=== PATIENT | female | born 1935 | race Caucasian/White ===

== ENCOUNTER 2023-03-05 14:41 | Outpatient (CLI) | payer MEDICARE | END 2023-03-05 14:42 | disposition home or self-care (01) | LOC: RAD 14:41 | PROVIDERS: ATTEND Anesthesiology Pain Medicine | DX: S32.040G Wedge compression fracture of fourth lumbar vertebra, subsequent encounter for fracture with delayed healing (principal); S32.049A Unspecified fracture of fourth lumbar vertebra, initial encounter for closed fracture | CPT/HCPCS: 72100 ==

== ENCOUNTER 2023-03-13 07:42 | Outpatient (CLI) | payer MEDICARE | END 2023-03-13 07:43 | disposition home or self-care (01) | LOC: SCSMRI 07:42 | PROVIDERS: ATTEND Nurse Practitioner Family | DX: S32.10XA Unspecified fracture of sacrum, initial encounter for closed fracture (principal); S32.040G Wedge compression fracture of fourth lumbar vertebra, subsequent encounter for fracture with delayed healing; S32.021A Stable burst fracture of second lumbar vertebra, initial encounter for closed fracture | CPT/HCPCS: 72148; 72195 ==

== ENCOUNTER 2023-06-04 08:28 | Outpatient (CLI) | payer MEDICARE | END 2023-06-04 08:29 | disposition home or self-care (01) | LOC: SCSMRI 08:28 | PROVIDERS: ATTEND Nurse Practitioner Family | DX: S32.059A Unspecified fracture of fifth lumbar vertebra, initial encounter for closed fracture (principal); S32.10XA Unspecified fracture of sacrum, initial encounter for closed fracture; M47.816 Spondylosis without myelopathy or radiculopathy, lumbar region | CPT/HCPCS: 72148; 72195 ==

== ENCOUNTER 2023-06-12 09:54 | Outpatient (CLI) | payer MEDICARE | END 2023-06-12 09:55 | disposition home or self-care (01) | LOC: BICCT 09:54 | PROVIDERS: ATTEND Anesthesiology Pain Medicine | DX: S32.051A Stable burst fracture of fifth lumbar vertebra, initial encounter for closed fracture (principal); M47.816 Spondylosis without myelopathy or radiculopathy, lumbar region; M47.817 Spondylosis without myelopathy or radiculopathy, lumbosacral region; Z98.890 Other specified postprocedural states | CPT/HCPCS: 72131 ==

== ENCOUNTER 2023-06-22 09:41 | Day surgery (SDC) | payer MEDICARE ==
[~2023-06-22 09:41] MED LIST: ROMOSOZUMAB-AQQG 210 MG/2.34 ML SYR SQ SCH
[2023-06-22 10:05] VITALS: BP 160/69; TEMP 98.4
== END 2023-06-22 11:30 | disposition home or self-care (01) ==
LOC: ONC/OP 09:41
PROVIDERS: ATTEND Internal Medicine
DX: M80.00XA Age-related osteoporosis with current pathological fracture, unspecified site, initial encounter for fracture (principal)
CPT/HCPCS: 96372; J3111

== ENCOUNTER 2023-08-17 09:44 | Day surgery (SDC) | payer MEDICARE ==
[2023-08-17 10:38] VITALS: BP 158/76; TEMP 98.1
== END 2023-08-17 10:51 | disposition home or self-care (01) ==
LOC: ONC/OP 09:44
PROVIDERS: ATTEND Internal Medicine
DX: M80.00XA Age-related osteoporosis with current pathological fracture, unspecified site, initial encounter for fracture (principal)
CPT/HCPCS: 96372; J3111

== ENCOUNTER 2023-09-14 09:35 | Day surgery (SDC) | payer MEDICARE ==
[2023-09-14] MEDS: ROMOSOZUMAB-AQQG 210 MG/2.34 ML SYR SQ SCH (10:05)
[2023-09-14 10:37] VITALS: BP 156/69; TEMP 98.3
== END 2023-09-14 10:22 | disposition home or self-care (01) ==
LOC: ONC/OP 09:35
PROVIDERS: ATTEND Internal Medicine
DX: M80.00XA Age-related osteoporosis with current pathological fracture, unspecified site, initial encounter for fracture (principal)
CPT/HCPCS: 96372; J3111

== ENCOUNTER 2024-01-11 08:49 | Outpatient (CLI) | payer MEDICARE | END 2024-01-11 08:50 | disposition home or self-care (01) | LOC: BICMRI 08:49 | PROVIDERS: ATTEND Nurse Practitioner Family | DX: S32.030A Wedge compression fracture of third lumbar vertebra, initial encounter for closed fracture (principal); M47.816 Spondylosis without myelopathy or radiculopathy, lumbar region; M47.817 Spondylosis without myelopathy or radiculopathy, lumbosacral region; M48.061 Spinal stenosis, lumbar region without neurogenic claudication; M48.07 Spinal stenosis, lumbosacral region; R60.9 Edema, unspecified | CPT/HCPCS: 72148 ==

== ENCOUNTER 2024-01-14 09:29 | Day surgery (SDC) | payer MEDICARE ==
[2024-01-14 10:01] VITALS: BP 149/60; TEMP 97.5
== END 2024-01-14 10:09 | disposition home or self-care (01) ==
LOC: ONC/OP 09:29
PROVIDERS: ATTEND Internal Medicine
DX: M80.00XA Age-related osteoporosis with current pathological fracture, unspecified site, initial encounter for fracture (principal)
CPT/HCPCS: 96372; J3111

== ENCOUNTER 2024-04-17 11:10 | Day surgery (SDC) | payer MEDICARE ==
[2024-04-17 11:34] VITALS: BP 124/60; TEMP 98.4
[2024-04-17] MEDS: ROMOSOZUMAB-AQQG 105 MG/1.17 ML SYR SQ SCH (11:34)
[2024-04-17] MEDS ORDERED: FLU (Fluad Triv) TS24-25 (65UP)/MF59C/PF 45 MCG/0.5 ML Syringe IM ONE (12:00)
== END 2024-04-17 11:40 | disposition home or self-care (01) ==
LOC: ONC/OP 11:10
PROVIDERS: ATTEND Internal Medicine
DX: M80.00XA Age-related osteoporosis with current pathological fracture, unspecified site, initial encounter for fracture (principal)
CPT/HCPCS: 96372

== ENCOUNTER 2024-05-22 09:58 | Day surgery (SDC) | payer MEDICARE ==
[2024-05-22] MEDS: ROMOSOZUMAB-AQQG 105 MG/1.17 ML SYR SQ SCH (10:30)
[2024-05-22 11:44] VITALS: BP 127/60; TEMP 98.1
== END 2024-05-22 11:44 | disposition home or self-care (01) ==
LOC: ONC/OP 09:58
PROVIDERS: ATTEND Internal Medicine
DX: M80.00XA Age-related osteoporosis with current pathological fracture, unspecified site, initial encounter for fracture (principal)
CPT/HCPCS: 96401; J3111

== ENCOUNTER 2025-03-11 11:35 | Outpatient (CLI) | payer MEDICARE | END 2025-03-11 11:36 | disposition home or self-care (01) | LOC: BICMAMMO 11:35 | PROVIDERS: ATTEND Internal Medicine | DX: M80.00XA Age-related osteoporosis with current pathological fracture, unspecified site, initial encounter for fracture (principal); Z78.0 Asymptomatic menopausal state; M85.851 Other specified disorders of bone density and structure, right thigh; M85.852 Other specified disorders of bone density and structure, left thigh | CPT/HCPCS: 77080 ==